=== PATIENT | male | born 1950 | race Caucasian/White ===

== ENCOUNTER 2019-03-30 06:35 | Inpatient (IN) ==
[2019-03-30] MEDS ORDERED: CeFAZolin Syr 2,000MG/20 ML 2,000 MG/20 ML SYRINGE IVPB ONE (06:52)
[2019-03-30] MEDS ORDERED: Albuterol 2.5 MG/3 ML NEBULIZER IH PRN (06:52)
[2019-03-30] MEDS ORDERED: Ringers Solution, Lactated 1,000 ML IVC SCH ×2 (07:00→08:00)
[2019-03-30] MEDS ORDERED: *HR* Midazolam HCl 2 MG/2 ML VIAL ONE (07:49)
[2019-03-30] MEDS ORDERED: Dexamethasone 4 MG/ML VIAL ONE (07:49)
[2019-03-30] MEDS ORDERED: *HR* FentaNYL (PF) 100 MCG/2 ML VIAL ONE (07:49)
[2019-03-30] MEDS ORDERED: Lidocaine -MPF 2% 2 ML VIAL ONE (07:49)
[2019-03-30] MEDS ORDERED: *HR* Propofol 200 MG/20 ML VIAL IVP ONE (07:49)
[2019-03-30] MEDS ORDERED: Ondansetron 4 MG/2 ML VIAL ONE (07:49)
[2019-03-30] MEDS ORDERED: *HR* Succinylcholine 200 MG/10 ML VIAL IVP ONE (07:50)
[2019-03-30] MEDS ORDERED: *HR* Phenylephrine 10 MG/ML VIAL ONE (07:50)
[2019-03-30] MEDS ORDERED: Lidocaine HCL 4 ML Topical Solution (Laryng-O-Jet Kit Sterile Pak) TP ONE (07:50)
[2019-03-30] MEDS ORDERED: *HR* Rocuronium Bromide 50 MG/5 ML VIAL ONE ×2 (07:50→10:37)
[2019-03-30] MEDS ORDERED: Ketorolac 15 MG/ML VIAL IVP ONE (07:53)
[2019-03-30] MEDS ORDERED: *HR* OxyCODONE Immed Rel 5 MG TABLET PO PRN (07:53)
[2019-03-30] MEDS ORDERED: *HR* Promethazine 25 MG/ML VIAL IVP PRN (07:53)
[2019-03-30] MEDS ORDERED: Bupivacaine-MPF 0.25% 10 ML VIAL ONE (08:20)
[2019-03-30] MEDS ORDERED: Mannitol 20% 0 GM/0 ML IV.SOLN IVC ONE (08:46)
[2019-03-30] MEDS ORDERED: Mannitol 25% vial 12.5 GM/50 ML VIAL IVP ONE (08:49)
[2019-03-30] MEDS ORDERED: *HR* HYDROMORPHONE 2 MG/ML VIAL ONE (09:05)
[2019-03-30] MEDS ORDERED: *HR* Labetalol 20 MG/4 ML SYRINGE IVP ONE (09:22)
[2019-03-30] MEDS ORDERED: Acetaminophen IV 1,000 MG/100 ML INFUS..BTL IVPB ONE (09:59)
[2019-03-30] MEDS ORDERED: Acetaminophen IV 1,000 MG/100 ML INFUS..BTL ONE (10:01)
[2019-03-30] MEDS: *HR* HYDROmorphone (PF) 1 MG/ML SYRINGE IVP PRN ×2 (13:40→13:50)
[2019-03-30] MEDS ORDERED: Acetaminophen 325 MG TABLET PO PRN (14:27)
[2019-03-30] MEDS ORDERED: Naloxone 0.4 MG/ML INJ IVP PRN (14:27)
[2019-03-30] MEDS ORDERED: *HR* HYDROcodone/Acet 5/325 mg TABLET PO PRN (14:27)
[2019-03-30] MEDS: 0.9 % Sodium Chloride 1,000 ML IVC SCH (15:15)
[2019-03-30] MEDS ORDERED: Ipratropium/Albuterol Neb 3 ML IH PRN (16:00)
[2019-03-30] MEDS: *HR* Heparin 5,000 UNIT/ML VIAL SQ SCH (17:35)
[2019-03-30] MEDS: Ondansetron 4 MG/2 ML VIAL IVP PRN ×2 (18:29→20:33)
[2019-03-30] MEDS: *HR* OxyCODONE/APAP 10/325 TABLET PO PRN (20:21)
[2019-03-30] MEDS: *HR* FentaNYL (PF) 100 MCG/2 ML VIAL IVP PRN (21:28)
[2019-03-30] MEDS: Budesonide/Formoterol 160/4.5 1 PUFF INH IH SCH (22:24)
[2019-03-31] MEDS: *HR* OxyCODONE/APAP 10/325 TABLET PO PRN ×3 (01:53→16:13)
[2019-03-31] MEDS: 0.9 % Sodium Chloride 1,000 ML IVC SCH ×2 (01:54→08:50)
[2019-03-31 02:11] LABS: Basophils % 0.1 %; Hematocrit 41.1 % (37.5-50.1); Immature Granulocytes % 0.7 % (0-4); Lymphocytes # 1.2 K/mcL (0.6-4.6); Lymphocytes % 6.4 %; Mean Corpuscular HGB Conc 34.1 g/dL (31.6-35.5); Mean Corpuscular Hemoglobin 30.9 pg (28.0-33.3); Mean Corpuscular Volume 90.7 fL (83.0-100.0); Mean Platelet Volume 9.5 fL (9.4-12.4); Monocytes # 1.5 K/mcL (0.0-1.3); Monocytes % 8.1 %; Neutrophils # 15.7 K/mcL (1.6-8.9); Platelet Count 269 K/mcL (140-400); Red Blood Count 4.53 M/mcL (4.19-5.50); Red Cell Distribution Width 12.9 % (11.5-14.5); Segmented Neutrophils % 84.7 %; White Blood Count 18.5 K/mcL (4.3-11.1)
[2019-03-31 02:30] LABS: BUN/Creatinine Ratio 18 (6-26); Blood Urea Nitrogen 18 mg/dL (8-23); Calcium 8.2 mg/dL (8.6-10.3); Carbon Dioxide 22 mEq/L (23-29); Chloride 108 mEq/L (98-107); Glucose 162 mg/dL (70-105); Osmolality,Calculated 287 (280-300); Potassium 4.3 mEq/L (3.5-5.1); Sodium 136 mEq/L (136-145); eGFR For African Americans > 60 (> 60); eGFR For Non-African Americans > 60 (> 60)
[2019-03-31] MEDS: *HR* Heparin 5,000 UNIT/ML VIAL SQ SCH ×2 (06:24→17:53)
[2019-03-31] MEDS: Budesonide/Formoterol 160/4.5 1 PUFF INH IH SCH ×2 (07:38→20:15)
[2019-03-31] MEDS: Ondansetron 4 MG/2 ML VIAL IVP PRN ×2 (10:55→18:15)
[2019-03-31] MEDS: *HR* FentaNYL (PF) 100 MCG/2 ML VIAL IVP PRN ×2 (17:53→22:56)
[2019-04-01] MEDS: *HR* Heparin 5,000 UNIT/ML VIAL SQ SCH (05:01)
[2019-04-01] MEDS: *HR* OxyCODONE/APAP 10/325 TABLET PO PRN ×2 (05:01→11:49)
[2019-04-01] MEDS: Budesonide/Formoterol 160/4.5 1 PUFF INH IH SCH (08:20)
[2019-04-01 09:47] VITALS: BP 130/85
== END 2019-04-01 12:15 | disposition home or self-care (01) | DRG 660 ==
LOC: SAMDAY 06:35 → 3ANU 14:29
PROVIDERS: ADMIT Urology; ATTEND Urology